=== PATIENT | male | born 1980 | race Caucasian/White ===

== ENCOUNTER 2024-02-03 13:28 | Emergency (ER) | payer BC ==
[~2024-02-03] VITALS: Ht 203.2 cm; Wt 86.2 kg
[2024-02-03 13:31] VITALS: BP 117/77; TEMP 98.2; O2SAT 98
== END 2024-02-03 15:42 | disposition left against medical advice (07) ==
LOC: ER 13:35
DX: T14.8XXA Other injury of unspecified body region, initial encounter (principal); W54.0XXA Bitten by dog, initial encounter; Y93.89 Activity, other specified; Y92.89 Other specified places as the place of occurrence of the external cause; Y99.8 Other external cause status